=== PATIENT | male | born 1960 | race Caucasian/White ===

== ENCOUNTER 2024-04-11 02:12 | Outpatient (CLI) | payer MEDICARE, BC, SELFPAY ==
--- NOTE | 2024-04-11 09:32 | DI.RAD_ITS ---
Exam(s) RF MODIFIED SPEECH BA SWALLOW TECHNIQUE: Modified barium swallow was performed in conjunction with speech pathology. Radiologist w as present in the fluoroscopy suite for this entire procedure CONTRAST MATERIAL: Oral barium Oral water soluble contrast was administered. Multiple textures were administered by the speech pathologist. COMPARISON: No exams were available for comparison FINDINGS: See separate speech pathologist report for details. There was no aspiration evident during this study. IMPRESSION: No evidence of aspiration or penetration. RADIATION DOSE DELIVERED: andrew Parsons=11.0 mGy
[2024-04-11] MEDS: Barium Sulfate Oral Paste 40% W/V 230 ML TUBE PO (09:51)
[2024-04-11] MEDS: Barium Sulfate 40% W/V 240 ML BTL PO (09:51)
[2024-04-11] MEDS: Barium Sulfate 81% w/w for Oral Suspension 148 GM BTL PO (09:52)
--- NOTE | 2024-04-11 12:04 | ST.MBS ---
Date of Service Date of service: 04/11/24 Time of Service: 09:00 Modified Barium Swallow Study Findings: Video fluoroscopic Swallowing Evaluation (VFSE) / Modified Barium Swallow Study (MBSS) Speech Language Pathology Report Patient referred for VFSE/MBSS from Dr. Moeller given dysphagia complaints with particulate foods. HPI & Patient report of function: Patient is a 63 year old male with >10 year history of intermittent dysphagia, primarily to particulate solids like protein bars or popcorn- occasional dry pieces of meat. He denies difficulty with pills, liquids, or other foods. No concerns with pneumonia or weight management. Duy was seen by ENT/Dr Moeller for nasolaryngoscopy on 03/23/24 which was essential WNL with anticipation that age-related mucosal drying may be contributing. MBSS recommended for further work up. Previous Imaging: Patient reports prior MBSS approximately 10 years ago, unremarkable findings IMPRESSIONS: Overall findings are within functional limits. There is no evidence of oral pharyngeal weakness or sensory impairment. No penetration or aspiration appreciated. In trials of raj cracker, at least mild to moderate vallecular retention is appreciated. This does reduce with repeat swallows and fully clear with liquid wash. Anticipate patient's symptoms are consistent with vallecular retention. One factor likely contributing to this is mucosal drying - with high caffeine (diuretic) intake likely contributing to suboptimal hydration (current=4 cups coffee daily). This is consistent with particulate foods being most troublesome. In addition, epiglottic inversion is mildly diminished. This is in the setting of WNL hyolaryngeal movement, and thus appears due to age-related spinal changes at C3-C4 impacting full deflection of the epiglottis. Per verbal conversation with radiologist- considered trace/early osteophyte formation. This is fully non-obstructive, though anticipate may be contributing factor paired with mucosal dryness. This is best viewed on slide 5. Again, the study is well within functional limits. Patient encouraged to reduce caffeine/increase hydration, add moisture to foods, ensure he is drinking liquids with foods. Film reviewed with patient at end of study and all questions answered. No follow up indicated. Report sent to PCP/ENT. Specialist referrals:?N/A RECOMMENDATIONS: Diet Texture Recommendation:? IDDSI LEVEL SOLIDS 7-Regular Solids LIQUIDS 0-Thin Liquids MEDICATIONS Whole with liquids PLAN: Evaluation only OBJECTIVE Videofluoroscopic Swallow Evaluation (VFSE/MBSS) was conducted in the lateral and [id number] projection by Speech-Language Pathologist, in collaboration with Radiologist, to evaluate oropharyngeal swallow function. Anatomic view under fluoroscopy: WFL PO Barium Contrast Trials Oral barium water-soluble contrast was administered as follows: IDDSI Level 0 Varibar thin liquid (40% w/v) IDDSI Level 2 Varibar nectar thick/mildly thick liquid (40% w/v) IDDSI Level 4 Varibar pudding/pureed/extremely thick (40% w/v) IDDSI Level 7 Regular Solid: 1/2 raj cracker coated in 3 mL Varibar pudding MBSImP Component Scores: COMPONENT Scale SCORE 1 Lip closure (0-4) 0 Resulted in no labial escape 2 Hold Position (0-3) 0 Maintained a cohesive bolus between tongue to palatal seal 3 Bolus Preparation (0-4) 0 Resulted in timely and efficient chewing and mashing 4 Bolus Transport (0-4) 0 Was with brisk tongue motion 5 Oral Residue (0-4) 1 Was a trace, lining oral structures 6 Swallow Initiation (0-4) 1 Occurred when the bolus head was in valleculae 7 Soft Palate Elevation (0-4) 0 Resulted in no bolus between soft palate and the pharyngeal wall 8 Laryngeal Elevation (0-3) 0 Demonstrated complete superior movement of thyroid cartilage with complete approximation of arytenoids to epiglottic petiole 9 Anterior Hyoid Motion (0-2) 0 Demonstrated complete anterior movement 10 Epiglottic Movement (0-2) 1 Resulted in partial inversion 11 Laryngeal Closure (0-2) 0 Was complete with no air or contrast in laryngeal vestibule 12 Pharyngeal Stripping Wave (0-2) 0 Was present and complete 13 Pharyngeal Contraction (0-3) 0 Was complete 14 PES Opening (0-3) 0 Was completely distended and complete duration with no obstruction of flow 15 Tongue Base Retraction (0-4) 0 Allowed no contrast between the tongue base and posterior pharyngeal wall 16 Pharyngeal Residue (0-4) 1 Showed a trace within or on pharyngeal structures 17 Esophageal Clearance (0-4) 0 Was complete, with only a coating of contrast, if any Results: COMPONENT Scale SCORE 1 Oral Score (0-18) 1 2 Pharyngeal Score (0-29) 1 3 Esophageal Score (0-4) 0 Functional Oral Intake Scale: COMPONENT Scale SCORE 1 Pre-Study (1-7) 6 Total oral intake with no special preparation, but must avoid specific foods or liquid items 2 Post-Study (1-7) 6 Total oral intake with no special preparation, but must avoid specific foods or liquid items Penetration-Aspiration Scale: COMPONENT Scale SCORE 1 Thin liquid (1-8) 1 Contrast did not enter the airway 2 Deary thick (1-8) 1 Contrast did not enter the airway 3 Honey thick (1-8) NA 4 Pudding thick (1-8) 1 Contrast did not enter the airway 5 Cookie (1-8) 1 Contrast did not enter the airway Thank you for allowing us to take part in this patient's care. Please feel free to contact the [facility] Speech Language Pathology Department with any questions/concerns.
== END 2024-04-11 02:32 ==
LOC: DI 02:12
PROVIDERS: Visit Provider Otolaryngology
DX: R13.12 Dysphagia, oropharyngeal phase (principal)
CPT/HCPCS: 92526; 74221